=== PATIENT | male | born 1970 | race Caucasian/White ===

== ENCOUNTER 2016-06-20 09:19 | Emergency (ER) | payer OTHER ==
[2016-06-20 10:23] LABS: HEMOGLOBIN 15.8 gm/dl (14.0-17.5); RED BLOOD COUNT 5.17 M/UL (4.20-5.50); WHITE BLOOD COUNT 12.2 K/UL (4.5-11.0)
[2016-06-20 10:43] LABS: BUN/CREATININE RATIO 16 (0-10)
== END 2016-06-20 15:43 | disposition short-term general hospital (02) ==
LOC: ER1 09:19
PROVIDERS: Physician Assistant
DX: R07.89 Other chest pain (principal); R42 Dizziness and giddiness; F17.210 Nicotine dependence, cigarettes, uncomplicated; Z79.82 Long term (current) use of aspirin; Z88.1 Allergy status to other antibiotic agents
CPT/HCPCS: 36415; 71020; 80053; 82550; 82553; 83874; 84484; 85025; 93005; 99285